=== PATIENT | female | born 1980 | race African-American/Black ===

== ENCOUNTER 2016-10-05 19:08 | Emergency (ER) | payer OTHER ==
--- NOTE | ~2016-10-05 | US98 ---
[facility] A Service of [facility] RADIOLOGY TEXT RESULTS PATIENT: CARYN HERNANDEZ LOCATION: [facility] : 76 UNIT #: [id number] AGE: [address]: Sami Shu MD SEX: F ORDER DR: [id number] [place], [place] [address] [id number] MR#: [id number] Acc #: [id number] NAME: CARYN HERNANDEZ : 1980 SEX: F STUDY DATE/TIME: 10/05/2016 22:26 UNIT: ROSS ROOM: STUDY DESCRIPTION: US Pelvic Non-OB Complete Attending Physician: Sami Suh M.D. Ordering Physician: Robel Nelson A.P.R.N. Primary Care Physician: Primary Care Physician No MEDICAL IMAGING REPORT This report is preliminary unless electronic signature is present EXAM Pelvic ultrasound INDICATION Pelvic pain for the past 2 weeks. PROCEDURE Jeronimo-scale and Doppler imaging of the pelvis via transabdominal and transvaginal approach. COMPARISON None. FINDINGS Patient status post hysterectomy. Ovaries are normal in appearance. No pelvic fluid or adnexal mass. IMPRESSION Previous hysterectomy, otherwise negative pelvic ultrasound. Dictated by... Chuck Gomez M.D. THIS IS AN ELECTRONICALLY VERIFIED REPORT Chuck Gomez M.D. at 10/06/2016 10:24 PM EED/sarah TD: 10/06/2016 00:45 JOB #: [id number] [facility] A Service of [facility] RADIOLOGY TEXT RESULTS PATIENT: CARYN HERNANDEZ LOCATION: [facility] : 76 UNIT #: [id number] AGE: [address]: Sami Suh MD SEX: F ORDER DR: MEDICAL IMAGING REPORT Page 1 of 1 COPY
[2016-10-05 19:58] LABS: URINE SOURCE CLEAN CATCH
[2016-10-05 20:02] LABS: BASOPHIL# 0.1 X10e3 (0-0.3); BASOPHIL% 0.8 % (0-2.5); EOSINOPHIL# 0.1 X10e3 (0-0.7); EOSINOPHIL% 1.8 % (0.0-7.0); HEMATOCRIT 39.1 % (35.0-45.0); HEMOGLOBIN 12.4 gm/dL (12.0-16.0); LYMPHOCYTE# 2.4 X10e3 (1.0-3.5); MEAN CORPUSCULAR HEMOGLOBIN 28.5 PG (28-34); MEAN CORPUSCULAR HGB CONC 31.7 g/dL (30-36); MONOCYTE# 0.4 X10e3 (0-1.0); MONOCYTE% 6.7 % (3.0-12.0); NEUTROPHIL# 3.3 X10e3 (1.5-7.1); NEUTROPHIL% 52.7 % (40-75); PLATELET COUNT 220 X10e3 (140-420); RED BLOOD COUNT 4.35 X10e (3.90-5.30); RED CELL DISTRIBUTION WIDTH 13.5 % (11.0-15.5); WHITE BLOOD COUNT 6.3 X10e3 (4.0-10.5)
[2016-10-05 20:04] LABS: URINE APPEARANCE CLEAR; URINE BILIRUBIN NEG (NEG); URINE BLOOD NEG (NEG); URINE COLOR YELLOW; URINE GLUCOSE NEG (NEG); URINE KETONE NEG (NEG); URINE LEUKOCYTE ESTERASE TRACE (NEG); URINE NITRATE NEG (NEG); URINE PH 6.5 (5-8); URINE PROTEIN NEG (NEG); URINE SPECIFIC GRAVITY 1.022 (1.003-1.035)
[2016-10-05 20:06] LABS: DIFF IND NO
[2016-10-05 20:08] LABS: CULTURE INDICATED? NO; URBCS1 AUWI 0-2 /[HPF] (0-2); URINE BACTERIA AUWI NEG (NEGATIVE); URINE SQUAMOUS EPITHELIAL CELL OCC /[HPF]
[2016-10-05 20:28] LABS: ALBUMIN SERUM 3.7 g/dL (3.5-5.0); BILIRUBIN,TOTAL 0.2 mg/dL (0.2-2.0); BUN/CREATININE RATIO 12.22; CALCIUM SERUM 9.1 mg/dL (8.4-10.2); CREATININE SERUM 0.9 mg/dL (0.6-1.4); GLOM FILT RATE Estimated 94.7 mL/min (>60); POTASSIUM 3.3 mmol/L (3.5-5.1); PROTEIN TOTAL SERUM 7.2 g/dL (6.0-8.3)
[2016-10-08 19:48] LABS: CHLAMYDIA TRACH Not Detected (Not Detected); N GONOR Not Detected (Not Detected)
== END 2016-10-05 23:05 | disposition home or self-care (01) ==
LOC: CED 19:08
PROVIDERS: Nurse Practitioner
DX: N76.0 Acute vaginitis (principal); Z88.5 Allergy status to narcotic agent
CPT/HCPCS: 76830; 76856; 80053; 81003; 85025; 87220; 87491; 87591; 87808; 87905; 96372; 99284; J1885